=== PATIENT | female | born 1985 | race Caucasian/White ===

== ENCOUNTER 2023-05-14 09:29 | Inpatient (IN) | payer BC ==
[2023-05-14 10:03] VITALS: BMI 25.9
[2023-05-14] MEDS ORDERED: Methylergonovine 0.2 MG/ML VIAL IM PRN (10:16)
[2023-05-14] MEDS ORDERED: fentaNYL 50 mcg/mL 1 mL Vial SLOW IVP PRN (10:16)
[2023-05-14] MEDS ORDERED: Tranexamic Acid 1,000 MG/10 ML VIAL IVP PRN (10:16)
[2023-05-14] MEDS ORDERED: Carboprost 250 MCG/ML AMP IM PRN (10:16)
[2023-05-14] MEDS ORDERED: Lidocaine 1% (PF) 30 ML VIAL SC PRN (10:16)
[2023-05-14] MEDS ORDERED: Diphenoxylate HCl/Atropine Tablet PO PRN (10:16)
[2023-05-14] MEDS ORDERED: Ondansetron PF 4 MG/2 ML Vial IVP PRN ×2 (10:16→12:49)
[2023-05-14] MEDS ORDERED: hydrALAZINE 20 MG/ML VIAL SLOW IVP PRN ×2 (10:16→16:36)
[2023-05-14] MEDS ORDERED: Acetaminophen 500 MG TAB PO PRN (10:16)
[2023-05-14] MEDS ORDERED: Docusate 100 MG CAP PO PRN (10:16)
[2023-05-14] MEDS ORDERED: Misoprostol 200 MCG TAB PR PRN (10:16)
[2023-05-14] MEDS ORDERED: Promethazine HCl 25 MG/ML VIAL IM PRN ×2 (10:16→12:49)
[2023-05-14 10:37] LABS: Hemoglobin 13.6 g/dL (12.0-15.5); Mean Corpuscular HGB CONC 33.2 g/dL (32.0-36.0); Mean Corpuscular Hemoglobin 28.9 pg (27.0-33.0); Mean Platelet Volume 11.9 fl (7.4-10.4); Platelet Count 137 10x3/uL (150-450); RBC Distribution Width 16.4 % (11.5-14.5); Red Blood Cell (RBC) Count 4.71 10x6/uL (3.90-5.03); White Blood Cell (WBC) Count 7.6 10x3/uL (3.5-10.5)
[2023-05-14] MEDS: Lactated Ringer's 1,000 ML IV SCH ×2 (10:46→11:16)
[2023-05-14] MEDS ORDERED: fentaNYL/Ropivacaine Epidural 100 ML ONE (10:48)
[2023-05-14 11:09] LABS: Syphilis Antibody Nonreactive (Nonreactive); Syphilis Antibody Index 0.06 S/CO (<1.00 Non-Reactive)
[2023-05-14 11:10] LABS: HBSAg Index 0.21 S/CO (0-0.99); Hep B Surf Ag - L&D Non-Reactive S/CO (NonReactive)
[2023-05-14] MEDS: Oxytocin 30 units/NS 500 ML 500 ML IV SCH ×2 (12:02→13:44)
[2023-05-14] MEDS ORDERED: diphenhydrAMINE 50 MG/ML VIAL IVP PRN (12:49)
[2023-05-14] MEDS ORDERED: Moisturizing Cream (Eucerin) 113 GM JAR TOP PRN (12:49)
[2023-05-14] MEDS ORDERED: Naloxone HCl 0.4 mg/ml Vial IVP PRN ×2 (12:49)
[2023-05-14] MEDS ORDERED: ePHEDrine Sulfate 50 MG/10 ML VIAL SLOW IVP PRN (12:49)
[2023-05-14] MEDS ORDERED: Lactated Ringer's 500 ML IV PRN (12:49)
[2023-05-14] MEDS ORDERED: Acetaminophen 325 MG TAB PO PRN (12:49)
[2023-05-14] MEDS ORDERED: fentaNYL 2 mcg/Ropivacaine 0.2% Epidural 100 ML CADD EPIDURAL SCH (13:00)
[2023-05-14] MEDS ORDERED: Communication Order-Pharmacy FS SCH (13:00)
[2023-05-14] MEDS ORDERED: Lanolin Ointment 7 GM TUBE TOP PRN (16:36)
[2023-05-14] MEDS ORDERED: Milk Of Magnesia 30 ML UDCUP PO PRN (16:36)
[2023-05-14] MEDS ORDERED: Benzocaine-Menthol 82.5 ML CAN TOP PRN (16:36)
[2023-05-14] MEDS ORDERED: Boostrix 0.5 ML (Tdap) VIAL (>/=7 yrs of age) IM ONE (16:36)
[2023-05-14] MEDS ORDERED: Bisacodyl 10 MG SUPP PR PRN (16:36)
[2023-05-14] MEDS ORDERED: traMADol HCl 50 MG TAB PO PRN (16:36)
[2023-05-14] MEDS: Ferrous Sulfate 325 MG TAB PO SCH (17:38)
[2023-05-14] MEDS: Ibuprofen 800 MG TAB PO SCH (17:46)
[2023-05-14] MEDS: Docusate 100 MG CAP PO SCH (20:52)
[2023-05-15] MEDS: Ibuprofen 800 MG TAB PO SCH ×3 (02:23→16:48)
[2023-05-15] MEDS: Ferrous Sulfate 325 MG TAB PO SCH ×2 (07:17→16:48)
[2023-05-15] MEDS: Docusate 100 MG CAP PO SCH ×2 (09:27→21:22)
[2023-05-16] MEDS: Ibuprofen 800 MG TAB PO SCH ×2 (01:52→10:41)
[2023-05-16] MEDS: Ferrous Sulfate 325 MG TAB PO SCH (07:28)
[2023-05-16 09:07] VITALS: BP 119/65; TEMP 97.8
[2023-05-16] MEDS: Docusate 100 MG CAP PO SCH (10:41)
== END 2023-05-16 16:20 | disposition home or self-care (01) | DRG 807 ==
LOC: CSHLD/OP 09:29 → CSHLD 10:16 → CSHPED 16:20
PROVIDERS: ADMIT Obstetrics & Gynecology; ATTEND Obstetrics & Gynecology
PROC: 10E0XZZ Delivery of Products of Conception, External Approach (ICD-10-PCS; principal; 2023-05-14)
PROC: 0HQ9XZZ Repair Perineum Skin, External Approach (ICD-10-PCS; 2023-05-14)
DX: O30.043 Twin pregnancy, dichorionic/diamniotic, third trimester (principal); Z37.2 Twins, both liveborn; Z3A.37 37 weeks gestation of pregnancy; O70.0 First degree perineal laceration during delivery
CPT/HCPCS: 51702; 85027; 86780; 86850; 86900; 86901; 87340; 99285; J2590; J7120